=== PATIENT | female | born 2000 | race Caucasian/White ===

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

== ENCOUNTER 2022-01-17 12:33 | Emergency (ER) | payer OTHER ==
--- OUTSIDE RECORDS SUMMARY | 2022-01-17 12:40 | XMS REPORT | Continuity of Care Document ---
:2000 Author Organization [facility] t Address [address] [place] [address] Care Team Providers Name Role Phone Gabe SMITH, Juancarlos Olguin Primary Care Physician [phone] Janell Guillen Attending Clinician Unavailable WINDY YOUNGER Attending Clinician Unavailable Lolly Carty RN Attending Clinician Unavailable Darleen Elizabeth MD Attending Clinician Doctor Unassigned, [place] Attending Clinician Unavailable Haylee Pack MA Attending Clinician Unavailable Kendra Wright MD Attending Clinician MADELEINE KENNEY M.D. 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 00:00: [place] [address] Medical Branch SWOLLEN SWOLLEN Diagnosis Active 2017-052018-06-13 Memoria LEGS LEGS 0-02 08:58:00 l Active 00:00: Evelio 02/12/2018 00 [facility] LEG PAIN LEG PAIN Diagnosis Active 2018 Memoria Active 01-28 19:57:00 l 2018 00:00: Felix patrick [address] LEG PAIN LEG PAIN Diagnosis Active 2018-08-07 Memoria BILATERAL BILATERAL 01-28 10:12:00 l Active 00:00: Evelio 2018 00 [facility] Pain in Pain in Problem 2018-08-19 Me moria right foot right foot 13:25:31 l Felix patrick 9 [facility] Localized Localized Problem 2018-08-19 Memoria swelling, swelling, 13:25:31 l mass and mass and Felix patrick lump, lump, lower lower limb, limb, bilateral bilateral 08/19/2018 [facility] 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:25: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 Steen dimple 08/19/2018 [facility] Unsteadine Unsteadin Problem 2018-08-19 Memoria ss on feet ess on 13:25:31 l feet Steen 08/19/2018 [facility] Insomnia, Insomnia, Problem 2018-08-19 Memoria unspecifie unspecifie 13:25:31 l d d Evelio 08/19/2018 [facility] Pain in Pain in Problem 2018-08-19 Me moria left ankle left ankle 13:25:31 l Felix patrick 9 [facility] Pain in Pain in Problem 2018-08-19 Me moria right right 13:25:31 l ankle ankle Steen 08/19/2018 [facility] Weakness Weakness Problem 2018-08-19 Memoria 08/19/2018 13:25:31 l [facility] Pain in Pain in Problem 2018-09-01 Me moria left leg left leg 14:33:20 l 09/01/2018 Felix patrick [facility] Pain in Pain in Problem 2018-09-01 Me moria right leg right leg 14:33:20 l 09/01/2018 Felix patrick [facility] Other Other Problem 2018-09-01 Memor ia specified specified 14:33:20 l soft soft Steen tissue tissue disorders disorders 09/01/2018 [facility] Pain in Pain in Problem Active 2018-09-01 Me moria lower limb lower limb 14:33:20 l (finding) (finding) Herm david Active Problem 09/01/2018 [facility] PAIN IN PAIN IN Diagnosis Active 2018-08-07 Memoria RIGHT LEG RIGHT LEG 10:12:00 l Active [facility] Lymphedema Lymphedema Problem Active U T Physici ans History of History of Problem Resolve [facility] scoliosis scoliosis d Phys ici ans Abnormal Abnormal Problem Active [facility] thyroid thyroid Physici function function ans test test Karyn' Karyn' Problem Active U T s s Physici thyroiditi thyroiditi an s s s History of Past Illness Condition Condition Condition Status Onset Resolution Last Treating Co mments Source Name Details Category Date Date Treatment Clinician Date Other Other Problem 2017-052018-09-01 2018-09-01 M emoria chronic chronic 0-06 14:33:20 14:33:20 l pain pain 03:37: Evelio 02/16/2018 18 09/01/2018 [facility] Pain in Pain in Problem 2017-052018-09-01 2018-09-01 Memoria leg, leg, 0-02 14:33:20 14:33:20 l unspecifie unspecifie 05:00: Reji galvez d 00 02/12/2018 09/01/2018 [facility] Pain in Pain in Problem 2017-052018-08-19 2018-08-19 Memoria left foot left foot 06-12 13:25:31 13:25:31 l 04/12/2018 05:33: Felix patrick 08/19/2018 [facility] Allergies, Adverse Reactions, Alerts Allergy Allergy Status Severity Reaction(s) Onset Inactive Treating Comm ents Source Name Type Date Date Clinician Actical Drug Active [facility] Allergy 8- Health 00:00: 00 Eggs Or Allergy Active [facility] Egg-Deri to 01-06 Health alissa substanc 00:00: Products e 00 Food Food Active Memoria Eggs Eggs l Evelio Food Food Active Memoria Gluten Gluten l Evelio Other Other Active Memoria Food Food l Allergy< Allergy< Felix n sup>1</s sup>1</s up> up> Family History Family Member Diagnosis Comments Start Date Stop Date Source Grandmother Family history of diabetes [facility] mellitus Grandmother Family history of [facility] fibromyalgia Grandmother Family history of arthritis [facility] Mother Family history of [facility] gestational diabetes mellitus (GDM) Grandfather Family history of diabetes [facility] mellitus Grandfather Family history of [facility] hypertension Social History Social Habit Start Date Stop Date Quantity Comments Source Exposure to Not sure [facility] SARS-CoV-2 (event) History SDOH [facility] Comment [place] [facility] History SDOH [facility] o [facility] Alcohol Std [place] [facility] Drinks Branch History SDOH University o f Alcohol Binge [place] [facility] History SDOH 2020-06-09 2020-06-09 1 University o f Alcohol Frequency 00:00:00 00:00:00 [facility] edical Branch Alcohol intake 2018 2018 [facility] 00:00:00 00:00:00 non-drinker of alcohol (finding) Tobacco use and 2016-08-29 2016-08-29 Never used Universit y of exposure 00:00:00 00:00:00 [facility] [place] [facility] Sex Assigned At 2000 2002 [facility] 00:00:00 00:00:00 Smoking Status Start Date Stop Date Source Tobacco smoking consumption unknown [facility] Social History [facility] Medications Ordered Filled Start Stop Current Ordering Indication Dosage Frequency Signature Comments Components Source Medication Medication Date Date Medication? Clinician (SIG) Name Name acetaminoph Yes Take by [facility] en 01-06 mouth. Health (Tylenol) 08:48: 325 48 MG/10.15ML solution Flaxseed, Yes Take by UT Linseed, 01-06 mouth. Health (Flax Seed 08:48: Oil) 1000 48 MG capsule zinc Yes 50mg QD Take 50 mg UT gluconate 01-06 by mouth 1 Heal th 50 MG 08:48: (one) time tablet 48 each day. Probiotic Yes Take by [facility] Product 01-06 mouth. Health (PROBIOTIC 08:11: ADVANCED 17 PO) calcium 2022-0 Yes Take by UT carbonate 8-26 mouth. Health (Tums) 375 08:11: mg ([place] 17 150mg) tablet chewable split tablet arginine 0 Yes Take by UT (L-arginine 8- mouth. Health , R-Gene) 08:11: 10% 17 infusion gabapentin 2021-0 Yes [id number] 300mg Q.5D Take 1 UT (Neurontin) 8- capsule Healt h 300 MG 00:00: (300 mg capsule 00 total) by mouth in the morning and 1 capsule (300 mg total) in the evening. benzonatate 0 Yes 100mg Q.[id number] Take 100 UT (Tessalon) 8-11 [id number] mg by He alth 100 MG 00:00: 3D mouth 3 capsule 00 (three) times a day if needed. gabapentin 2021-0 2- No 300mg Q.[id number] Take 300 UT (Neurontin) 5-20 - [id number] mg by [facility] 300 MG 00:00: 00:00 3D mouth in capsule 00 :00 the morning and 300 mg at noon and 300 mg in the evening. ACETAMINOPH Yes Take by Uni vers EN (TYLENOL 1-20 mouth. ity of ORAL) 14:34: [address] calcium 2021-0 Yes Take by Univers carbonate 1-20 mouth. ity of (CALCIUM 14:34: [place] 300 ORAL) [address] [place] [address] ACETAMINOPH Yes Take by Uni vers EN (TYLENOL 1-20 mouth. ity of ORAL) 14:34: [address] calcium 2021-0 Yes Take by Univers carbonate 1-20 mouth. ity of (CALCIUM 14:34: [place] 300 ORAL) [address] [place] [address] ACETAMINOPH 2021-0 Yes Take by Uni vers EN (TYLENOL 1-20 mouth. ity of ORAL) 14:34: [address] calcium 2021-0 Yes Take by Univers carbonate 1-20 mouth. ity of (CALCIUM 14:34: [place] 300 ORAL) [address] [place] [address] ACETAMINOPH 2021-0 Yes Take by Uni vers EN (TYLENOL 1-20 mouth. ity of ORAL) 14:34: [address] calcium 2-0 Yes Take by Univers carbonate 1-20 mouth. ity of (CALCIUM 14:34: [place] 300 ORAL) 47 Medical Branch levonorgest 2022-0 Yes [id number] 1{tbl} Take 1 Univers rel-ethinyl 1-20 tablet by ity of estradiol 00:00: mouth [place] ([facility]) 00 every Medical 0.1-20 morning. Branch mg-mcg per tablet levonorgest 2022-0 Yes [id number] 1{tbl} Take 1 Univers rel-ethinyl 1-20 tablet by ity of estradiol 00:00: mouth [place] ([facility]) 00 every Medical 0.1-20 morning. Branch mg-mcg per tablet levonorgest 2022-0 Yes [id number] 1{tbl} Take 1 Univers rel-ethinyl 1-20 tablet by ity of estradiol 00:00: mouth [place] ([facility] every Medical 0.1-20 morning. Branch mg-mcg per tablet levonorgest 2022-0 Yes [id number] 1{tbl} Take 1 Univers rel-ethinyl 1-20 tablet by ity of estradiol 00:00: mouth [place] ([facility]) 00 every Medical 0.1-20 morning. Branch mg-mcg per tablet Methylsulfo 2022-0 Yes Take by [place] nylmethane 1-12 mouth. Health ([facility] 1000 11:12: MG capsule 02 Methylsulfo 2022-0 Yes Take by [place] nylmethane 1-12 mouth. Health ([facility] 1000 11:12: MG capsule 02 Methylsulfo 2022-0 Yes Take by [place] nylmethane 1-12 mouth. Health ([facility] 1000 11:12: MG capsule 02 Methylsulfo 2022-0 Yes Take by [place] nylmethane 1-12 mouth. Health ([facility] 1000 11:12: MG capsule 02 Methylsulfo 2022-0 Yes Take by [place] nylmethane 1-12 mouth. Health ([facility] 1000 11:12: MG capsule 02 amoxicillin 2020-05 Yes QD 1 (one) UT (Amoxil) 2-28 time each Health 500 MG 00:00: day. capsule 00 amoxicillin 2020-05 Yes QD 1 (one) UT (Amoxil) 2-28 time each Health 500 MG 00:00: day. capsule 00 amoxicillin 2020-05 Yes QD 1 (one) UT (Amoxil) 2-28 time each Health 500 MG 00:00: day. capsule 00 amoxicillin 2020-05 Yes QD 1 (one) UT (Amoxil) 2-28 time each Health 500 MG 00:00: day. capsule 00 amoxicillin 2020-05 Yes QD 1 (one) UT (Amoxil) 2-28 time each Health 500 MG 00:00: day. capsule 00 Vienva 2020-05 Yes 1{tbl} QD Take 1 UT 0.1-20 2-28 tablet by Health MG-MCG 00:00: mouth 1 tablet 00 (one) time each day. VIENVA 2020-05- No [id number] TAKE 1 Uni vers 0.1-20 2-27 01-20 TABLET BY ity of mg-mcg per 00:00: 00:00 MOUTH [place] tablet 00 :00 DAILY Medical Branch VIENVA 2020-05- No [id number] TAKE 1 Uni vers 0.1-20 2-27 01-20 TABLET BY ity of mg-mcg per 00:00: 00:00 MOUTH [place] tablet 00 :00 DAILY Medical Branch gabapentin 2020-05 Yes Univers 300 mg 2-20 ity of capsule 00:00: Medical Branch gabapentin 2020-05 Yes Univers 300 mg 2-20 ity of capsule 00:00: Medical Branch gabapentin 2020-05 Yes Univers 300 mg 2-20 ity of capsule 00:00: Medical Branch gabapentin 2020-05 Yes Univers 300 mg 2-20 ity of capsule 00:00: Medical Branch hydrOXYchlo 2020-05 Yes 200mg Take 200 U nivers roQUINE 200 2-15 mg by ity of mg tablet 00:00: mouth (two) Medical times Branch daily. ibuprofen 2020-05 Yes 800mg Take 800 Uni vers 800 mg 2-15 mg by ity of tablet 00:00: mouth (two) Medical times Branch daily with meals. hydrOXYchlo 2020-05 Yes 200mg Take 200 U nivers roQUINE 200 2-15 mg by ity of mg tablet 00:00: mouth (two) Medical times Branch daily. ibuprofen 2020-05 Yes 800mg Take 800 Uni vers 800 mg 2-15 mg by ity of tablet 00:00: mouth (two) Medical times Branch daily with meals. hydrOXYchlo 2020-05 Yes 200mg Take 200 U nivers roQUINE 200 2-15 mg by ity of mg tablet 00:00: mouth (two) Medical times Branch daily. ibuprofen 2020-05 Yes 800mg Take 800 Uni vers 800 mg 2-15 mg by ity of tablet 00:00: mouth (two) Medical times Branch daily with meals. hydrOXYchlo 2020-05 Yes 200mg Take 200 U nivers roQUINE 200 2-15 mg by ity of mg tablet 00:00: mouth (two) Medical times Branch daily. ibuprofen 2020-05 Yes 800mg Take 800 Uni vers 800 mg 2-15 mg by ity of tablet 00:00: mouth (two) Medical times Branch daily with meals. ibuprofen 2020-05 Yes 800mg Take 800 UT 800 MG 2-15 mg by Health tablet 00:00: mouth (two) times a day with meals. hydroxychlo 2020-05 Yes 200mg Take 200 U T roquine 2-15 mg by Health (Plaquenil) 00:00: mouth if 200 MG 00 needed. tablet ibuprofen 2020-05 Yes 800mg Take 800 UT 800 MG 2-15 mg by Health tablet 00:00: mouth (two) times a day with meals. hydroxychlo 2020- Yes 200mg Take 200 U T roquine 2-15 mg by Health (Plaquenil) 00:00: mouth if 200 MG 00 needed. tablet ibuprofen 2020-05 Yes 800mg Take 800 UT 800 MG 2-15 mg by Health tablet 00:00: mouth 00 (two) times a day with meals. hydroxychlo 2020- Yes 200mg Take 200 U T roquine 2-15 mg by Health (Plaquenil) 00:00: mouth if 200 MG 00 needed. tablet ibuprofen 2020- Yes 800mg Take 800 UT 800 MG 2-15 mg by Health tablet 00:00: mouth 2 00 (two) times a day with meals. hydroxychlo 2020- Yes 200mg Take 200 U T roquine 2-15 mg by Health (Plaquenil) 00:00: mouth if 200 MG 00 needed. tablet ibuprofen 2020- Yes 800mg Take 800 UT 800 MG 2-15 mg by Health tablet 00:00: mouth 2 00 (two) times a day with meals. hydroxychlo 2020-05 Yes 200mg Take 200 U T roquine 2-15 mg by Health (Plaquenil) 00:00: mouth if 200 MG 00 needed. tablet predniSONE 2020-05- No Univer s 5 mg tablet 2-15 06-02 ity of 00:00: 00:00 [place] 00 :00 Medical Branch predniSONE 2020-05- No Univer s 5 mg tablet 2-06-02 ity of 00:00: 00:00 [place] 00 :00 Medical Branch lidocaine 2020-05 Yes APPLY 1 UT (Lidoderm) 0-26 PATCH Health 5 % patch 00:00: TOPICALLY 00 TO THE SKIN DAILY NEEDED Lactobacill Yes Take by Uni vers us 06-09 mouth. ity of acidophilus 14:10: [place] (PROBIOTIC 12 Medical ORAL) Branch ARGININE Yes Take by Univer s HCL, 06-09 mouth. ity of L-ARGININE, 14:10: [address] Branch Lactobacill Yes Take by Uni vers us 06-09 mouth. ity of acidophilus 14:10: [place] (PROBIOTIC 12 Medical ORAL) Branch ARGININE Yes Take by Univer s HCL, 06-09 mouth. ity of L-ARGININE, 14:10: [place] [address] Medical Branch Lactobacill Yes Take by Uni vers us 06-09 mouth. ity of acidophilus 14:10: [place] (PROBIOTIC 12 Medical ORAL) Branch ARGININE Yes Take by Univer s HCL, 06-09 mouth. ity of L-ARGININE, 14:10: [place] [address] Medical Branch Lactobacill Yes Take by Uni vers us 06-09 mouth. ity of acidophilus 14:10: [place] (PROBIOTIC 12 Medical ORAL) Branch ARGININE Yes Take by Univer s HCL, 06-09 mouth. ity of L-ARGININE, 14:10: [place] [address] Medical Branch lidocaine 5 Yes 1{patch Apply 1 Univers % (700 1-27 } Patch to ity of mg/patch) 14:01: area(s) [place] patch 06 once now. Medical Branch lidocaine 5 Yes 1{patch Apply 1 Univers % (700 1-27 } Patch to ity of mg/patch) 14:01: area(s) [place] patch 06 once now. Medical Branch lidocaine 5 Yes 1{patch Apply 1 Univers % (700 1-27 } Patch to ity of mg/patch) 14:01: area(s) [place] patch 06 once now. Medical Branch lidocaine 5 Yes 1{patch Apply 1 Univers % (700 1-27 } Patch to ity of mg/patch) 14:01: area(s) [place] patch 06 once now. Medical Branch Lidocaine 5 Lidocaine 5 Yes MADELEINE UT % External % External 3-01 ANNE MARIE Osorio Phys[facility] Patch Patch 00:00: ans 00 Ketorolac 2017-05 No 10 mg, 1 Michael clay Tromethamin 0-02 tab, l e 10 MG 14:00: Route: PO, Herm david Oral Tablet 00 QID, Dosing Weight 74.1, kg, Start date: 02/12/18 9:00:00 CDT, Duration: 4 day, Stop date: 02/15/18 21:00:00 CDT Ketorolac 2017-05 No 10 mg, 1 Michael clay Tromethamin 0-02 tab, l e 10 MG 14:00: Route: PO, Herm david Oral Tablet 00 QID, Dosing Weight 74.1, kg, Start date: 02/12/18 9:00:00 CDT, Duration: 4 day, Stop date: 02/15/18 21:00:00 CDT NS 2017-05 No 741 mL, Memoria (Pediatric) 0 Route: IV, l Bolus 11:36: Dosing Steen Weight 74.1, kg, ONCE, Bolus dose, STAT, Start date: 02/12/18 6:36:00 CDT, Stop date: 02/12/18 6:36:00 CDT NS 2017-05 No 741 mL, Memoria (Pediatric) 0- Route: IV, l Bolus 11:36: Dosing Steen 00 Weight 74.1, kg, ONCE, Bolus dose, STAT, Start date: 02/12/18 6:36:00 CDT, Stop date: 02/12/18 6:36:00 CDT ketOROLAC 2017-05 No 30 mg, Memori a 30 mg/mL 0 Route: IV, l injectable 10:47: ONCE, Felix n solution 00 Dosing Weight 74.1, kg, Start date: 02/12/18 5:47:00 CDT, Stop date: 02/12/18 5:47:00 CDT ketOROLAC 2018-1 No 30 mg, Memori a 30 mg/mL Route: IV, l injectable 10:47: ONCE, Felix n solution 00 Dosing Weight 74.1, kg, Start date: 02/12/18 5:47:00 CDT, Stop date: 02/12/18 5:47:00 CDT Ketorolac 2018-0 No 50 kg; Memor ia Tromethamin 9-20 Pediatric l e 10 MG 02:33: Dosing, X Mary Anne nn Oral Tablet 00 2 day, # 8 tab, 0 Refill(s) Ketorolac 2018-0 No 50 kg; Memor ia Tromethamin 9-20 Pediatric l e 10 MG 02:33: Dosing, X Mary Anne nn Oral Tablet 00 2 day, # 8 tab, 0 Refill(s) Ketorolac 2018-0 No 50 kg; Memor ia Tromethamin 9-20 Pediatric l e 10 MG 01:46: Dosing, X Mary Anne nn Oral Tablet 00 5 day, # 20 tab, 0 Refill(s) Ketorolac 2018-0 No 50 kg; Memor ia Tromethamin 9-20 Pediatric l e 10 MG 01:46: Dosing, X Mary Anne nn Oral Tablet 00 5 day, # 20 tab, 0 Refill(s) Lidocaine 2018-0 Yes 1 patch, Michael clay 0.05 MG/MG 9-19 TOP, l Transdermal 23:32: Daily, Herm david Patch 00 remove patches after 12 hours, # 7 patch, 0 Refill(s) Lidocaine 2018-0 Yes 1 patch, Michael clay 0.05 MG/MG 9-19 TOP, l Transdermal 23:32: Daily, Herm david Patch 00 remove patches after 12 hours, # 7 patch, 0 Refill(s) Tylenol 2017-0 No Notes: Do Memor ia 9-19 not exceed l 16:15: 4 gm/day. Evelio (Same as: Tylenol) Tylenol 2017-0 No Notes: Do Memor ia 9-19 not exceed l 16:15: 4 gm/day. Steen (Same as: Tylenol) Ketorolac 2018-0 No 4 days. Michael clay Tromethamin 01-30 Give with l e 10 MG 11:45: food. Evelio Oral Tablet 00 (Same as:Toradol ) Ketorolac 2018-0 No 4 days. Michael clay Tromethamin - Give with l e 10 MG 11:45: food. Evelio Oral Tablet 00 (Same as:Toradol ) Ketorolac 2018-0 No 4 days Memor ia 01-29 l 14:36: MEDICATION Evelio 00 WASTE Product Size: 30 mg Product Wasted: ___ mg Ketorolac 2018-0 No 4 days Memor ia 18 l 14:36: MEDICATION Evelio 00 WASTE Product Size: 30 mg Product Wasted: ___ mg Ketorolac 2018-0 No 4 days Memor ia 01-29 l 05:00: MEDICATION Steen 00 WASTE Product Size: 30 mg Product Wasted: ___ mg Ketorolac 2018-0 No 4 days Memor ia 01-29 l 05:00: MEDICATION Evelio 00 WASTE Product Size: 30 mg Product Wasted: ___ mg Prednisone 2018-0 No 20 mg, PO, M emoria -18 TID, l 04:50: Quantity Evelio 00 sufficient , 0 Refill(s) Prednisone 2017-0 No 20 mg, PO, M emoria -18 TID, l 04:50: Quantity Evelio 00 sufficient , 0 Refill(s) sucrose 0 No 1 mL, Memoria 01-29 Route: PO, l 04:46: Drug Form: Evelio 00 LIQ, Dosing Weight 73.9, kg, PRN, PRN Procedure, Start date: 01/28/18 23:46:00 CDT, Duration: 3 doses or times, Stop date: Limited # of times pentafluoro 0 No Notes: Michael clay propane-tet 01-29 (Same as: l rafluoroeth 04:46: Pain Ease H ermann ane topical 00 Medium Stream) WASTE: Aerosol - Return to Pharmacy Lidocaine 2017-0 No 1 appl, Memor ia 40 MG/ML 01-29 Route: l Topical 04:46: TOP, PRN, Mary Anne nn Cream 00 Drug form: CRM, PRN Procedure, Start date: 01/28/18 23:46:00 CDT, Duration: 30 day, Stop date: 02/27/18 23:45:00 CDT sucrose 2017-0 No 1 mL, Memoria 01-29 Route: PO, l 04:46: Drug Form: Steen 00 LIQ, Dosing Weight 73.9, kg, PRN, PRN Procedure, Start date: 01/28/18 23:46:00 CDT, Duration: 3 doses or times, Stop date: Limited # of times pentafluoro 2017-0 No Notes: Michael clay propane-tet 01-29 (Same as: l rafluoroeth 04:46: Pain Ease H ermann ane topical 00 Medium Stream) WASTE: Aerosol - Return to Pharmacy Lidocaine 2017-0 No 1 appl, Memor ia 40 MG/ML 01-29 Route: l Topical 04:46: TOP, PRN, Mary Anne nn Cream 00 Drug form: CRM, PRN Procedure, Start date: 01/28/18 23:46:00 CDT, Duration: 30 day, Stop date: 02/27/18 23:45:00 CDT Ketorolac 2017-0 No 15 mg, Memori a 01-28 Route: l 23:56: IVP, Drug form: INJ, ONCE, kg, Priority: STAT, Start date: 01/28/18 18:56:00 CDT, Stop date: 01/28/18 18:56:00 CDT Ketorolac 2017-0 No 15 mg, Memori a 01-28 Route: l 23:56: IVP, Drug form: INJ, ONCE, kg, Priority: STAT, Start date: 01/28/18 18:56:00 CDT, Stop date: 01/28/18 18:56:00 CDT Immunizations Ordered Immunization Filled Immunization Date Status Commen ts Source Name Name Tdap 2014-12-31 [facility] 00:00:00 Meningococcal, 2014-12-31 [facility] Unknown Serogroups 00:00:00 Meningococcal MCV4P 2014-12-31 [facility] 00:[facility]:00 Boostrix 5-2.5-18.5 2014-12-31 [facility] Intramuscular 00:00:00 Suspension Meningococcal, MCV4, 2014-12-31 [facility]pleted [facility] unspecified conjugate 00:00:00 formulation(groups A, C, Y and W-135) Varicella 2007-03-01 [facility] 00:00:00 Varivax 1350 2007-03-01 Completed [facility] PFU/0.5ML 00:00:00 Subcutaneous Injectable MMR 2006-02-09 Completed [facility] 00:00:00 IPV 2006-02-09 [facility]pleted [facility] 00:00:00 Polio, Unspecified 2006-02-09 [facility] 00:[facility]:00 DTaP 2006-02-09 [facility] 00:00:00 DTaP, unspecified 2006-02-09 [facility]pleted [facility] formulation 00:00:00 Ipol Injection 2006-02-09 Completed [facility] Injectable 00:00:00 M-M-R II Subcutaneous 2006-02-09 [facility]pleted [facility] Injectable 00:00:00 Hep A, Unspecified 2005-09-19 [facility] 00:[facility]:00 Hep A, ped/adol, 2 2005-09-19 [facility]pleted [facility] dose 00:00:00 hepatitis A vaccine, 2005-09-19 [facility]pleted [facility] pediatric/adolescent 00:00:00 dosage, 2 dose schedule Pneumococcal 2005-01-17 [facility] Conjugate PCV 7 00:00:00 Hep A, Unspecified 2005-01-17 [facility]pleted [facility] 00:00:00 Pneumococcal, 2005-01-17 [facility] Unspecified 00:00:00 Hep A, ped/adol, 2 2005-01-17 [facility]pleted [facility] dose 00:00:00 Pneumo (Prevnar 7) 2005-01-17 [facility]pleted [facility] 00:00:00 hepatitis A vaccine, 2005-01-17 Completed [facility] pediatric/adolescent 00:00:00 dosage, 2 dose schedule MMR 2003-06-02 Completed [facility] 00:00:00 MMR 2003-06-02 Completed [facility] 00:00:00 Pneumococcal 2003-06-02 Completed [facility] Conjugate PCV 7 00:00:00 Varicella 2003-06-02 Completed [facility] 00:00:00 Varicella 2003-06-02 [facility] 00:00:00 HiB, unspecified 2003-06-02 Completed [facility] 00:00:00 Pneumococcal, 2003-06-02 [facility]pleted [facility] Unspecified 00:00:00 DTaP, Unspecified 2003-06-02 [facility] 00:[facility]:00 DTaP 2003-06-02 [facility] 00:00:00 Hib (PRP-T) 2003-06-02 Completed [facility] 00:00:00 DTaP, unspecified 2003-06-02 [facility]pleted [facility] formulation 00:00:00 Hib, Haemophilus 2003-06-02 [facility]pleted [facility] influenzae type b 00:00:00 vaccine, PRP-T conjugate Pneumo (Prevnar 7) 2003-06-02 [facility]pleted [facility] 00:00:00 M-M-R II Subcutaneous 2003-06-02 Completed [facility] Injectable 00:00:00 Varivax 1350 2003-06-02 Completed [facility] PFU/0.5ML 00:00:00 Subcutaneous Injectable Pneumococcal 2002 Com[facility] Conjugate PCV 7 00:00:00 Pneumococcal, 2002 Completed [facility] Unspecified 00:00:00 Pneumo (Prevnar 7) 2002 [facility]pleted [facility] 00:00:00 IPV 2002 [facility] 00:00:00 Hep B, Unspecified 2002 [facility] 00:[facility]:00 HiB, unspecified 2002 [facility] 00:00:00 Polio, Unspecified 2002 [facility] 00:00:00 DTaP 2002 [facility] 00:00:00 Hep B, Adolescent or 2002 [facility] 00:00:00 Hib (PRP-T) 2002 [facility] 00:00:00 Hepatitis B, 2002 [facility]pleted [facility] pediatric/adolescent 00:00:00 dosage DTaP, unspecified 2002 [facility] formulation 00:00:00 Ipol Injection 2002 Completed [facility] Injectable 00:00:00 Hib, Haemophilus 2002 Completed [facility] influenzae type b 00:00:00 vaccine, PRP-T conjugate Pneumococcal 2002 Com[facility] Conjugate PCV 7 00:00:00 IPV 2002 Com[facility] 00:00:00 HiB, unspecified 2002 [facility] Unspecified 00:[facility]:00 Pol[facility], Unspecified [facility]P [facility] 00:[facility]:00 Hib (PRP-T) 2002 [facility] 00:[facility]:00 DTaP, unspecified 2002 [facility] formulation 00:00:00 Ipol Injection 2002 [facility] Injectable 00:00:00 Hib, Haemophilus 2002 [facility] influenzae type b 00:00:00 vaccine, PRP-T conjugate Pneumo (Prevnar 7) 2002 [facility]00 IPV [facility] 00:[facility]:00 Hep B, Unspecified [facility] HiB, unspecified [facility] Polio, Unspecified [facility] D[facility]P [facility] 00:[facility]:00 Hep B, Adolescent or [facility] Hib (PRP-T) 2002 [facility] 00:[facility]:00 Hepatitis B, 2002 [facility]:00 dosage DTaP, unspecified 2002 [facility] formulation 00:00:00 Ipol Injection 2002 [facility] Injectable 00:00:00 Hib, Haemophilus 2002 [facility] influenzae type b 00:00:00 vaccine, PRP-T conjugate Hep B, Unspecified [facility] Hep B, Adolescent or [facility] Hepatitis B, 2002 [facility] 00:[facility]:00 dosage Vital Signs Vital Name Observation Time Observation Value Comments Source Systolic blood 2022-01-06 111 mm[Hg] [facility] pressure 13:42:00 Diastolic blood 2022-01-06 73 mm[Hg] [facility] pressure 13:42:00 Heart rate 2022-01-06 94 /min [facility] 13:42:00 Body temperature 2022-01-06 36.78 Ella [facility] 13:42:00 Body height 2022-01-06 160 cm [facility] 13:42:00 Body weight 2022-01-06 97.693 kg [facility] 13:42:00 BMI 2022-01-06 38.15 kg/m2 [facility] 13:42:00 Systolic blood 2021-06-02 116 mm[Hg] [facility] pressure 20:31:00 [facility] Diastolic blood 2021-06-02 74 mm[Hg] [facility] pressure 20:31:00 [facility] Heart rate 2021-06-02 85 /min [facility] 20:31:00 [facility] Body temperature 2021-06-02 37.11 Ella [facility] 20:31:00 [facility] Respiratory rate 2021-06-02 18 /min [facility] 20:31:00 [facility] Body height 2021-06-02 160 cm [facility] 20:31:00 [facility] Body weight 2021-06-02 92.443 kg [facility] 20:31:00 [facility] BMI 2021-06-02 36.10 kg/m2 [facility] 20:31:00 [facility] Body mass index 2021-06-02 97.65 % [place] [facility] (BMI) [Percentile] 20:31:00 [facility] Per age and sex Branch Systolic blood 2021-05-25 118 mm[Hg] [facility] pressure 17:07:00 Diastolic blood 2021-05-25 75 mm[Hg] [facility] pressure 17:07:00 Heart rate 2021-05-25 89 /min [facility] 17:07:00 Body temperature 2021-05-25 36.28 Ella [facility] 17:07:00 Body weight 2021-05-25 92.171 kg [facility] 17:07:00 BMI 2021-05-25 36.09 kg/m2 [facility] 17:07:00 Body mass index 2021-05-25 97.66 % [facility] (BMI) [Percentile] 17:07:00 Per age and sex Systolic blood 2020-06-21 137 mm[Hg] Location: [facility] ns pressure 15:08:00 Position: Sitting Diastolic blood 2020-06-21 74 mm[Hg] [facility]: [facility]; [facility] pressure 15:08:00 Position: Sitting Body height 2020-06-21 159.8 cm [facility] 15:08:00 Weight 2020-06-21 85.9 kg [facility] 15:08:00 Body mass index 2020-06-21 33.64 kg/m2 [facility] (BMI) [Ratio] 15:08:00 Body temperature 2020-06-21 97.4 [degF] Method: [facility] 15:08:00 Temporal Heart Rate 2020-06-21 77 /min [facility] 15:08:00 BP Systolic 2019-05-21 102 mm[Hg] [facility] 08:52:00 BP Diastolic 2019-05-21 66 mm[Hg] [facility] 08:52:00 Height 2019-05-21 161.9 cm [facility] 08:52:00 Weight 2019-05-21 76.6 kg [facility] 08:52:00 Body Mass Index 2019-05-21 29.22 kg/m2 [facility] Calculated 08:52:00 Heart Rate 2019-05-21 79 /min [facility] 08:52:00 BP Systolic 2018-07-12 117 mm[Hg] [facility] 11:30:00 BP Diastolic 2018-07-12 76 mm[Hg] [facility] 11:30:00 Height 2018-07-12 161.9 cm [facility] 11:30:00 Weight 2018-07-12 78.05 kg [facility] 11:30:00 Body Mass Index 2018-07-12 29.78 kg/m2 [facility] Calculated 11:30:00 Heart Rate 2018-07-12 104 /min [facility] 11:30:00 Respitory Rate 2018-02-12 [facility] 13:46:00 Systolic (mm Hg) 2018-02-12 [facility] rmann 13:46:00 Diastolic (mm Hg) 2018-02-12 [facility] ermann 13:46:00 Heart Rate 2018-02-12 [facility] 13:46:00 Respitory Rate 2018-02-12 [facility] 11:16:00 Systolic (mm Hg) 2018-02-12 [facility] He rmann 11:16:00 Diastolic (mm Hg) 2018-02-12 [facility] H ermann 11:16:00 Heart Rate 2018-02-12 [facility] 11:16:00 Systolic (mm Hg) 2018-02-12 [facility] 11:15:00 Diastolic (mm Hg) 2018-02-12 [facility] 11:15:00 Respitory Rate 2018-02-12 [facility] 11:15:00 Heart Rate 2018-02-12 [facility] 11:15:00 Temperature Oral 2018-02-12 97.8 F Margarito Mendoza rmann (F) 11:13:00 Temperature Oral 2018-02-12 97.6 F Margarito Mendoza rmann (F) 08:49:00 Weight 2018-02-12 [facility] [...] ermann 13:08:00 Temperature Oral 2018-01-30 98.1 F Margarito Mendoza rmann (F) 08:27:00 Temperature Oral 2018-01-30 98.1 F [facility] Reji rmann (F) 04:55:00 Height 2018-01-29 161 cm [facility] 03:17:00 BMI Calculated 2018-01-29 [facility] 03:17:00 Weight 2018-01-29 [facility] 03:17:00 Temperature Oral 2018-01-29 98.0 F Margarito Mendoza rmann (F) 03:03:00 Weight 2018-01-29 [facility] 00:47:00 Procedures Procedure Date / Time Performing Clinician Source Performed POCT TEST 2021-06-02 20:43:00 [facility] 2021-06-02 06:01:00 Doctor Unassigned, No [facility] [place] CONTRACEPTION Name Medical Branch [QLH] TSH, 3RD 2019-05-21 00:00:00 [facility] GENER[facility] [[facility]] T4, TOTAL 2019-05-21 00:00:00 [facility] (THYROXINE) [QLH] T4, FREE 2019-05-21 00:00:00 [facility] [[facility]] T3 UPTAKE 2019-05-21 00:00:00 [facility] [[facility]] TSH, 3RD 2018-07-12 00:00:00 [facility] GENERATION [[facility]] T4, TOTAL 2018-07-12 00:00:00 [facility] (THYROXINE) [QLH] T4, FREE 2018-07-12 00:00:00 [facility] [[facility]] T3, TOTAL 2018-07-12 00:00:00 [facility] [[facility]] T3 UPTAKE 2018-07-12 00:00:00 [facility] [[facility]] THYROGLOBULIN 2018-07-12 00:00:00 [facility] ANTIBODIES [[facility]] THYROID PEROXIDASE 2018-07-12 00:00:00 [facility] ANTIBODIES Plan of Care Planned Activity Planned Date Details Comments Source Future Scheduled 2022-01-17 HEPATITIS B [facility] Test 12:36:54 VACCINES (1 of 3 - Hospital 3-dose series) [code = HEPATITIS B VACCINES (1 of 3 - 3-dose series)] Future Scheduled 2022-01-17 COVID-[address] Test 12:36:54 (#1) [code = Hospital COVID-19 VACCINE (#1)] Future Scheduled 2022-01-17 Screening for Buddhist Test 12:36:54 Chlamydia Hospital trachomatis (procedure) [code = 870278527] Future Scheduled 2022-01-17 INFLUENZA VACCINE Method ist Test 12:36:54 [code = INFLUENZA Hospital VACCINE] Future Scheduled [QLH] TSH, 3RD [facility] next [facility] GENERATION [code = appointment [QLH] TSH, 3RD GENERATION] Future Scheduled [QLH] T4, TOTAL Before next [facility] Test (THYROXINE) [code appointment = [QLH] T4, TOTAL (THYROXINE)] Future Scheduled [QLH] T4, FREE Before next [facility] [code = [QLH] T4, appointment FREE] Future Scheduled [QLH] T3 UPTAKE Before next [facility] Test [code = [QLH] T3 appointment UPTAKE] Future Scheduled [QLH] TSH, 3RD Before next [facility] Test GENERATION [code = appointment [QLH] TSH, 3RD GENERATION] Future Scheduled [QLH] T4, TOTAL Before next [facility] Test (THYROXINE) [code appointment = [QLH] T4, TOTAL (THYROXINE)] Future Scheduled [QLH] T4, FREE Before next [facility] Test [code = [QLH] T4, appointment FREE] Future Scheduled [QLH] T3 UPTAKE Before next [facility] Test [code = [QLH] T3 appointment UPTAKE] Future Scheduled [QLH] TSH, 3RD Before next [facility] Test GENERATION [code = appointment [QLH] TSH, 3RD GENERATION] Future Scheduled [QLH] T4, TOTAL Before next [facility] Test (THYROXINE) [code appointment = [QLH] T4, TOTAL (THYROXINE)] Future Scheduled [QLH] T4, FREE Before next [facility] Test [code = [QLH] T4, appointment FREE] Future Scheduled [QLH] T3 UPTAKE Before next [facility] Test [code = [QLH] T3 appointment UPTAKE] Encounters Start End Encounter Admission Attending Care Care Encounter Source Date/Time Date/Time Type Type Clinicians Facility Department ID 2021-12-23 Outpatient [facility] [id number] [place] 07:24:[id number] [place] [address] 2021-12-05 Outpatient [facility] [id number] Common 15:01:01 [facility] 2021-09-22 Outpatient YOUNGER, [facility] [id number] [place] 14:30:14 [facility] [id number] [facility] 2021-09-12 Outpatient Guillen, [facility] [id number] Common 13:59:01 [facility] 2022-05-01 2022-05-01 Outpatient YOUNGER, [facility] [id number] [place] 13:00:00 13:00:00 [facility] 2022-01-06 2022-01-06 Office Sole, [facility] [id number] [facility] 09:00:00 09:40:56 Visit Windy KENNEDY [id number] [facility] [id number] [facility] [id number] SPECIALTY 7 2021-12-22 2021-12-22 ambulatory STLMLC STLMLC [id number] Common 00:00:00 00:00:00 [facility] 2021-12-22 2021-12-22 ambulatory STLMLC STLMLC [id number] Common 00:00:00 00:00:00 [facility] 2021-12-05 2021-12-05 ambulatory STLMLC STLMLC [id number] Common 00:00:00 00:00:00 [facility] 2021-10-04 2021-10-04 ambulatory STLMLC STLMLC [id number] Common 00:00:00 00:00:00 [facility] 2021-09-21 2021-09-21 Telephone RASHAAD Younger 6410 [id number] [place] 00:00:00 00:00:00 Windy CRESPO [id number] Health 9.2.7.2.686 [id number] 2021-09-13 2021-09-13 ambulatory STLMLC STLMLC [id number] Common 00:00:00 00:00:00 [facility] 2021-06-27 2021-06-27 Telephone Lolly Carty 6410 1.2.840. [id number] [place] 00:00:00 00:00:00 Lolly Carty [id number] Health 9.2.7.2.686 [id number] 2021-06-04 2021-06-04 Refill Darleen Elizabeth [place] [id number] [facility] 00:00:00 00:00:00 GABRIELA [id number] [place] [id number] [facility] [address] 2021-06-02 2021-06-02 Office Darleen Elizabeth BON[place] [id number] [facility] 14:00:00 14:48:27 Visit GABRIELA [id number] [place] [id number] [facility] [address] 2021-06-02 2021-06-02 Orders Doctor SANTY [id number] Univers 00:00:00 00:00:00 Only Unassigned, KRYSTAL [id number] ity of [place] [facility] 4.2.7.2.686 [place] as [id number] [facility] 00[address] Branch 2021-05-30 2021-05-30 Telephone Haylee Pack UTP 6410 1.2.840.1 [id number] [place] 00:00:00 00:00:00 Sirena, Jackeagle [address]ERIE [address] 350.1.13.58 Health 9.2.7.2.686 [id number] 2021-05-25 2021-05-25 Office Sahu UTP 6410 1.2.840.114 [id number] [place] 11:00:00 12:10:[address] [id number] Health Kendra 9.2.7.2.686 [id number] 2020-08-31 2020-08-31 [facility] Darleen Elizabeth [facility] 1.2.840.114 [id number] 12:56:27 23:59:00 Encounter Concho [id number] [place] 4.2.7.2.686 [place] [id number] 2020-08-31 2020-08-31 [facility] 1.2.840.114 [id number] 12:54:42 12:55:00 Encounter [place] [id number] [place] 4.2.7.2.686 [place] [id number] 2020-06-21 2020-06-21 AppointRASHAAD Briceno [id number] [place] 15:20:00 15:20:00 t; MADELEINE KENNEY, Endocrinolo Physici Pop [place]. gy/Diabetes ans M.DBrian 2020-06-09 2020-06-09 Orders Doctor SANTY [id number] 00:00:00 00:00:00 Only Unassigned, KRYSTAL 350.1.13.10 [place] [facility] 4.2.7.2.686 [id number] 2019-05-21 2019-05-21 Appointmen RASHAAD KENNEY [id number] [place] 09:30:00 09:30:00 t; MADELEINE KENNEY Endocrinolo Physici NUNILO, M.D. gy/Diabetes ans M.DBrian 2018-07-12 2018-07-12 Appointmen RASHAAD KENNEY Pedi [id number] [place] 11:00:00 11:00:00 t; MADELEINE KENNEY Endocrinolo Physici NUNILO, M.D. gy/Diabetes ans M.Sabrina 2018-02-12 2018-02-12 Emergency nullFlavo [facility] [id number] Memoria 08:26:00 13:50:00 finesse Fraser 01 [facility] 2018-02-12 2018-02-12 [facility] 55096 51281 Memoria 08:26:00 13:50:00 finesse Fraser [facility] 2018-02-12 2018-02-[address] [facility] [id number] 03:26:00 08:50:00 Venkat Kathrine Elijah 2018 2018-01-31 Observatio nullFlavo [facility] [id number] Memoria 20:05:00 03:20:00 darnell Fraser [facility] 2018 2018-01-31 Observatio nullFlavo [facility] 4656 [id number] Memoria 20:05:00 03:20:00 darnell Fraser [facility] 2018 2018-01-[address] [facility] [id number] 15:05:00 22:20:00 Cinthya 00 Results Test Description Test Time Test Comments Results Result Comments Source POCT TEST 2021-06-02 20:43:00 Test Item Value Reference Range Interpretation Comme nts POCT PREG (test code = 1605) Negative On board controls acceptable with C Line (test code = 3574) Yes POCT PREG LOT # (test code = 3575) POCT PREG TEST DATE (test code = 3576) Lab Interpretation (test code = 59318-6) Normal [facility] [id number] 20:43:00 Test Item Value Reference Range Interpretation Comments POCT PREG (test code = 1605) Negative On board controls acceptable with C Yes Line (test code = 3574) POCT PREG LOT # (test code = 3575) POCT PREG TEST DATE (test code = 3576) Lab Interpretation (test code = Normal 55652-0) [facility][QL] T4, TOTAL (THYROXINE)2020-06-21 16:14:00 Test Item Value Reference Range Interpretation Comments T4, TOTAL 10.1 {mcg/dl} 5.5-11.1 <1 month: Not (THYROXINE) (test Establishe d - code = T4, TOTAL months: 6.0 -13.2 mcg/dL (THYROXINE)) 2-12 years: 5.5 -12.1 mcg/dL 13-20 ye ars: 5.5-11.1 mcg/dL Conversion fact or: 1 mcg/dL = 12.9 n mol/L [facility][QL] T3 [id number] 16:14:00 Test Item Value Reference Range Interpretation Comments T3 UPTAKE (test code = T3 UPTAKE) 27 % 22-35 N [facility][QL] T4, [id number] 16:14:00 Test Item Value Reference Range Interpretation Comments T4, FREE (test code = T4, FREE) 1.2 ng/dl 0.8-1.4 N [facility][QL] TSH, 3RD [id number] 16:14:00 Test Item Value Reference Range Interpretation Comments TSH; Normal (test 1.78 {MIU/L} N Reference Range 1-19 code = 57186-7) Years 0.50-4 .30 Range s First trimester 0.26- 2.66 Second trimeste r 0.55-2.73 Third trimester 0.43- 2.91 [facility]icians[facility]ucose (Point of Care In Office)2019-05-21 08:53:00 Test Item Value Reference Range Interpretation Comments Glucose POC Lifescan (test code = 99 A Glucose POC Lifescan) [facility][O] Hemoglobin A1c (in office)2019-05-21 08:52:00 Test Item Value Reference Range Interpretation Comments HEMOGLOBIN A1c; Abnormal (test code = 4.9 A 4548-4) [facility][QLH] THYROID PEROXIDASE [id number] 13:17:01 Test Item Value Reference Range Interpretation Comments Thyroid Peroxidase (TPO) Antibody; 63 {IU/ml} <=60 Above High Threshold (test code = 77765-3) [facility][QLH] THYROGLOBULIN [id number] 13:17:01 Test Item Value Reference Range Interpretation Comments Thyroglobulin Antibody (test code 22 {IU/ml} <=60 = 28872-1) [facility][QL] T3, [id number] 13:17:01 Test Item Value Reference Range Interpretation Comments T3 Total (test code = 3053-6) 1.13 ng/ml 0.60-1.81 [facility][QLH] T3 [id number] 13:16:01 Test Item Value Reference Range Interpretation Comments T3 Uptake (test code = 3050-2) 36 % 31-39 [facility][QL[facility]] T4, [id number] 13:16:01 Test Item Value Reference Range Interpretation Comments T4 Free (test code = 3024-7) 1.20 ng/dl 0.76-1.46 [facility][QL[facility]] T4, TOTAL (THYROXINE)2018-07-12 13:16:01 Test Item Value Reference Range Interpretation Comments Thyroxine (test code = 3026-2) 11.4 ug/dL 4.2-12.5 [facility][QLH] TSH, 3RD [id number] 13:16:01 Test Item Value Reference Range Interpretation Comments TSH (test code = 30444-9) 1.320 {uIU/ml} 0.360-3.740 [facility][H] Free Thyroxine [id number] 13:16:01 Test Item Value Reference Range Interpretation Comments Free Thyroxine Index (test code = 4.1 89522-1) [place] CkxnvxzvioGGBGJASPVT2505-41-03 10:42[facility] 2018-02-12 10:42:0013.3[facility] NphekrrRCGBAZPYVD1768-80-22 10:42:004.63[facility] MpttmuyNDGOSSCIPL0404-31-66 10:42:30739Pqwrrdty BrpjykcLSGAMXXUCK6057-53-47 10:42:0033.8[facility] EpfudayMEVMARUUWB4798-93-05 10:42:0013.7[facility] [id number] 10:42:00 Test Item Value Reference Range Interpretation Comments MCH (test code = MCH) 28.7 pg 27.0-31.0 [facility] BuxysihNMWIVEPPMV6449-54-22 10:42:0039.3[facility]ann[facility]MATOLOGY 2018-02-12 10:42:0084.8[facility]ann[facility] AND [id number] 10:42:00 Negative (02/12/18 5:42 AM)[facility] [id number] 10:42:00 Negative *NA*(02/12/18 5:42 AM)[facility] [id number] 10:42:00 Negative (02/12/18 5:42 AM)[facility] [id number] 10:42:00 Negative *NA*(02/12/18 5:42 AM)[facility] [id number] 10:42:00 Negative (02/12/18 5:42 AM)[facility] [id number] 10:42:00 Large *ABN*(02/12/18 5:42 AM)[facility] [id number] 10:42:00 0.2[facility] [id number] 10:42:00Trace *ABN*(02/12/18 5:42 AM)[facility] [id number] 10:42:00 Test Item Value Reference Range Interpretation Comments UA Spec Grav (test code = UA Spec 1.020 1 Grav) [facility] [id number] 10:42:00Slight Cloudy (02/12/18 5:42 AM)[facility] [id number] 10:42:00Yellow *NA*(02/12/18 5:42 AM)[facility] [id number] 10:42:00 Test Item Value Reference Range Interpretation Comments UA pH (test code = UA pH) 6.0 1 5.0-8.0 [facility] [id number] 10:42:00Negative (02/12/18 5:42 AM)[facility]CARDIAC UVAJKTC2721-73-89 10:42:0029[facility]annCHEM [id number] 10:42:004.9[facility]annCHEM [id number] 10:42:002.3[facility] JQUWYDWCIYAG1442-93-30 10:42:0014.8[facility]orial IiixjljUOYWZTOYPIWG8019-79-78 10:42:0024[facility]annCARDIAC [id number] 10:42:00 Test Item Value Reference Range Interpretation Comments Total CK (test code = Total CK) 29 12-191 [facility] HermannCHEM [id number] 10:42:00 Test Item Value Reference Range Interpretation Comments Phosphorus (test code = Phosphorus) 4.9 2.5-4.5 [facility]CHE[facility] [id number] 10:42:00 Test Item Value Reference Range Interpretation Comments Magnesium Lvl (test code = Magnesium 2.3 1.8-2.4 Lvl) [facility] BkxmxwaFGWGQRVMUTKF8544-03-90 10:42:00 Test Item Value Reference Range Interpretation Comments AGAP (test code = AGAP) 14.8 10.0-20.0 [facility] UbywpomJXGMOUNJZJEL1489-06-94 10:42:00 Test Item Value Reference Range Interpretation Comments CO2 (test code = CO2) 24 24-32 [facility]lineHnrsuamYFKEAFDBNSLP1525-48-92 10:42:00 Test Item Value Reference Range Interpretation Comments Potassium Lvl (test code = Potassium 3.8 3.5-5.1 Lvl) [facility]lineUwvpibnCYFXUOSMWCTR5195-15-29 10:42:00 Test Item Value Reference Range Interpretation Comments Chloride Lvl (test code = Chloride Lvl) 105 95-109 [facility] ShorelineJqczijuHPVHETAGCWSH3133-06-04 10:42:00 Test Item Value Reference Range Interpretation Comments Calcium Lvl (test code = Calcium Lvl) 9.8 8.5-10.5 [facility]safsaeUHOVVYIOVCZQ9266-65-06 10:42:00 Test Item Value Reference Range Interpretation Comments Sodium Lvl (test code = Sodium Lvl) 140 135-145 [facility] CenterHqkvjeoJMTRMNEORWKS6965-46-46 10:42:00 Test Item Value Reference Range Interpretation Comments Creatinine Lvl (test code = Creatinine 0.68 0.50-1.40 Lvl) [facility] CenterLlqxrbdFDJZWITXXJYE1922-31-47 10:42:00 Test Item Value Reference Range Interpretation Comments BUN (test code = BUN) 15 7-22 [facility] CenterXwyfvnaUYLTEXIZFJYU3649-56-32 10:42:00 Test Item Value Reference Range Interpretation Comments Glucose Lvl (test code = Glucose Lvl) 89 70-99 [facility] CenterYneddssMGHGRYONEWKI0434-01-91 10:42:00 Test Item Value Reference Range Interpretation Comments eGFR (test code = eGFR) See Comment [facility]KqnqdvzWCMIAGOSKT6755-27-00 10:42:00 Test Item Value Reference Range Interpretation Comments Lymphocytes # (test code = Lymphocytes 3.7 1.0-5.5 #) [facility] LancasterSzpvuqcSPEWSSSGGZ5944-56-21 10:42:00 Test Item Value Reference Range Interpretation Comments Eosinophils (test code = 1.4 See_Comment [A utomated message] The Eosinophils) system which ge nerated this result tra nsmitted reference range : <=4.0. The reference r rosangela was not used to int erpret this result as normal/abnormal . [facility] LancasterBzlabgfZXZKVFRDCE5599-07-09 10:42:00 Test Item Value Reference Range Interpretation Comments Neutrophils # (test code = Neutrophils 7.7 1.5-8.1 #) [facility] LancasterNyewuejRTJUYRXHQJ3217-73-45 10:42:00 Test Item Value Reference Range Interpretation Comments Monocytes (test code = Monocytes) 11.0 2.0-12.0 [facility] LancasterJtmgcnrZPQMMFWUQS3421-81-35 10:42:00 Test Item Value Reference Range Interpretation Comments Basophils (test code = 0.3 See_Comment [Aut omated message] The Basophils) system which ge nerated this result tra nsmitted reference range : <=1.0. The reference r rosangela was not used to int erpret this result as normal/abnormal . [facility] LancasterWnevioaOYXOJKHXJF1941-06-67 10:42:00 Test Item Value Reference Range Interpretation Comments Lymphocytes (test code = Lymphocytes) 28.6 20.0-40.0 [facility]YjveuttKACVUIFUEI3477-58-08 10:42:00 Test Item Value Reference Range Interpretation Comments Segs (test code = Segs) 58.7 45.0-75.0 [facility] HospitalUpoybhyZSAHZUPTVC6655-25-21 10:42:00 Test Item Value Reference Range Interpretation Comments Monocytes # (test code 1.4 See_Comment [Aut omated message] The = Monocytes #) system which generated this result tra nsmitted reference range : <=0.8. The reference r rosangela was not used to int erpret this result as normal/abnormal . [facility] LancasterDbbacfwVGJLLNIORO2370-21-39 10:42:00 Test Item Value Reference Range Interpretation Comments Eosinophils # (test code 0.2 See_Comment [A utomated message] The = Eosinophils #) system whic h generated this result tra nsmitted reference range : <=0.5. The reference r rosangela was not used to int erpret this result as normal/abnormal . [facility] ShorelineWquumleWVNVASXKKSOM4370-99-87 10:42:003.8MemoriChildress [facility] 2018-02-12 10:42:00 Test Item Value Reference Range Interpretation Comments MPV (test code = MPV) 7.4 7.4-10.4 [facility]AeakprnEAWESGHOLE5233-18-07 10:42:00 Test Item Value Reference Range Interpretation Comments WBC (test code = WBC) 13.1 3.7-10.4 [facility] LancasterQngwaydGEBQDIMOVB0117-44-63 10:42:00 Test Item Value Reference Range Interpretation Comments Hgb (test code = Hgb) 13.3 12.0-16.0 [facility] LancasterCblipelVVFKSOHUWM1180-65-82 10:42:00 Test Item Value Reference Range Interpretation Comments RBC (test code = RBC) 4.63 4.20-5.40 [facility]3426[facility]75-12 10:42:00 Test Item Value Reference Range Interpretation Comments Platelet (test code = Platelet) 310 133-450 [facility]QvkjcznYXGUYVMVHD7024-66-88 10:42:00 Test Item Value Reference Range Interpretation Comments MCHC (test code = MCHC) 33.8 32.0-36.0 [facility] LancasterAkvftlpYLFNVTGWKC3970-39-39 10:42:00 Test Item Value Reference Range Interpretation Comments RDW (test code = RDW) 13.7 11.5-14.5 [facility] LancasterSmepkcjVJYGNAHWUG1247-79-44 10:42:00 Test Item Value Reference Range Interpretation Comments MCH (test code = MCH) 28.7 pg 27.0-31.0 [facility] LancasterNnkrlzsJXBOIPDMBZ3825-39-53 10:42:00 Test Item Value Reference Range Interpretation Comments Hct (test code = Hct) 39.3 36.0-48.0 [facility] LancasterQsximcvRIFACQRWZJ7867-54-71 10:42:00 Test Item Value Reference Range Interpretation Comments MCV (test code = MCV) 84.8 80.0-98.0 [facility]2018-10-02 10:42:00 Test Item Value Reference Range Interpretation Comments UA RBC (test code = >100 /HPF See_Comment [Automa ruiz message] The UA RBC) system which ge nerated this result tra nsmitted reference range : <=2. The reference range was not used to interpr et this result as normal/abnormal . [facility] AND [id number] 10:42:00 Test Item Value Reference Range Interpretation Comments UA Bacteria (test code = UA Few /HPF Bacteria) [facility] AND [id number] 10:42:00 Test Item Value Reference Range Interpretation Comments UA Protein (test code Negative (02/12/18 5:42 = UA Protein) AM) [facility] AND [id number] 10:42:00 Test Item Value Reference Range Interpretation Comments UA Bili (test code = Negative *NA*(02/12/18 UA Bili) 5:42 AM) [facility]2018-10-02 10:42:00 Test Item Value Reference Range Interpretation Comments UA Glucose (test code Negative (02/12/18 5:42 = UA Glucose) AM) [facility]2018-10-02 10:42:00 Test Item Value Reference Range Interpretation Comments UA Ketones (test code Negative *NA*(02/12/18 = UA Ketones) 5:42 AM) [facility]2018-10-02 10:42:00 Test Item Value Reference Range Interpretation Comments UA Nitrite (test code Negative (02/12/18 5:42 = UA Nitrite) AM) [facility] [id number] 10:42:00 Test Item Value Reference Range Interpretation Comments UA Blood (test code = Large *ABN*(02/12/18 UA Blood) 5:42 AM) [facility] [id number] 10:42:00 Test Item Value Reference Range Interpretation Comments UA Urobilinogen (test code = UA 0.2 0.1-1.0 Urobilinogen) [facility] [id number] 10:42:00 Test Item Value Reference Range Interpretation Comments UA Sq Epi (test code = UA Sq Epi) Few /LPF [facility] [id number] 10:42:00 Test Item Value Reference Range Interpretation Comments UA WBC (test code = UA WBC) 3-5 /HPF [facility] [id number] 10:42:00 Test Item Value Reference Range Interpretation Comments UA Leuk Est (test code Trace *ABN*(02/12/18 = UA Leuk Est) 5:42 AM) [facility] [id number] 10:42:00 Test Item Value Reference Range Interpretation Comments UA Spec Grav (test code = UA Spec 1.020 1 Grav) [facility] [id number] 10:42:00 Test Item Value Reference Range Interpretation Comments UA Turbidity (test code Slight Cloudy = UA Turbidity) (02/12/18 5:42 AM) [facility] [id number] 10:42:00 Test Item Value Reference Range Interpretation Comments UA Color (test code = Yellow *NA*(02/12/18 UA Color) 5:42 AM) [facility] [id number] 10:42:00 Test Item Value Reference Range Interpretation Comments UA pH (test code = UA pH) 6.0 1 5.0-8.0 [facility] [id number] 10:42:00 Test Item Value Reference Range Interpretation Comments U Preg (test code = U Negative (02/12/18 5:42 Preg) AM) [facility]lineBbzflsjRZWUGKTSOCEG7415-96-44 10:42:97181[facility]f [facility]annELECTROLYTES 2018-02-12 10:42:009.8[facility] DdbfzkdJNTPRSOPWKBP9428-58-63 10:42:80888Nwivjzku PkydwwjHFJKTSCGVPJN6807-09-38 10:42:000.68[facility] BiwwftkMDIZBUXWDZGP1557-97-71 10:42:0015[facility] WwqfxupOOOVATOWLEGG5171-83-71 10:42:0089[facility] UDMAKUBBAA0455-16-05 10:42:003.7[facility] SwynuqeXKMJOHVQGM5024-81-59 10:42:001.4 [facility] BckuyjmPFBGNZCQNL2318-73-44 10:42:007.7[facility]annHEMATOLOGY 2018-02-12 10:42:0011.0[facility] RvkbzsrVFXUVIAJUF6103-54-43 10:42:000.3[facility] YpcbesvJPDNQQQDFD5177-04-39 10:42:0028.6[facility] NraydayGNKVIMZKCL3092-36-36 10:42:0058.7[facility] QyqknqmBPIIMFEWUD5796-58-41 10:42:001.4[facility] Evelio WTQJGTXKNO6082-73-20 10:42:000.2[facility] QoqekjdDWOOTOQDMA4861-82-78 10:42:007.4 [facility] AzswpyjKUYAHOVRIN6000-40-99 23:34:005[facility] HermannIMMUNOLOGY 2018 23:34:00<10[facility] TfiziucJSIMIRBWGB8222-68-59 23:34:00<2.9 Memorial UuuriouHWRJMBXFJI0634-51-85 23:34:18424Urhachja HermannIMMUNOLOGY 2018 23:34:00Negative (01/28/18 6:34 PM)[facility]annIMMUNOLOGY 2018 23:34:00Negative (01/28/18 6:34 PM)[facility]ann[facility]MAT[facility] 2018 23:34:00 Test Item Value Reference Range Interpretation Comments Sed Rate (test code = 5 See_Comment [Auto mated message] The Sed Rate) system which ge nerated this result transmit ruiz reference range : <=20. The reference range was not used to interpr et this result as leonor l/abnormal. [facility] RyozaaqHEHCPUWSIK9567-62-69 23:34:00 Test Item Value Reference Range Interpretation Comments RF Qnt (test code = no gt See_Comment [Automa ruiz message] The RF Qnt) system which ge nerated this result transmit ruiz reference range : <=20. The reference range was not used to interpr et this result as leonor l/abnormal. [facility]ot[facility]JRGOXPJI5063-76-93 23:34:00 Test Item Value Reference Range Interpretation Comments C-REACTIVE PROTEIN (test code = no gt C-REACTIVE PROTEIN) [facility] ArlingtonFwbgrurVAIOVSTHPB1433-67-12 23:34:00 Test Item Value Reference Range Interpretation Comments C3 Complement (test code = C3 132 88-201 Complement) [facility] ArlingtonDvedwpaRNENEPKICU1232-63-62 23:34:00 Test Item Value Reference Range Interpretation Comments HLA B-27 (test code = Negative (01/28/18 6:34 HLA B-27) PM) [place] [id number] 23:34:00 Test Item Value Reference Range Interpretation Comments MARCY (test code = MARCY) Negative (01/28/18 6:34 PM) [facility]
[2022-01-17] MEDS ORDERED: IBUPROFEN 400 MG TAB ONE (13:33)
--- NOTE | 2022-01-17 13:57 | RAD REPORT ---
EXAM DESCRIPTION: RAD - Shoulder Left 2 View - 01/17/2022 1:30 pm CLINICAL HISTORY: pain COMPARISON: No comparisons FINDINGS/IMPRESSION: No acute fracture. No malalignment. No significant focal degenerative changes.
--- NOTE | 2022-01-17 13:58 | RAD REPORT ---
EXAM DESCRIPTION: RAD - Humerus Left - 01/17/2022 1:30 pm CLINICAL HISTORY: pain COMPARISON: No comparisons FINDINGS/IMPRESSION: No acute fracture. No malalignment. No significant focal degenerative changes.
--- NOTE | 2022-01-17 14:04 | ER ---
Nurse's Notes [facility] Name: Jasmine Stacy Age: 21 yrs Sex: Female : 2000 Arrival Date: 01/17/2022 Time: 12:37 Bed 26 Private MD: Diagnosis: Pain in left upper arm;Fall on same level from slipping, tripping and stumbling without subsequent striking against object Presentation: 01/17 13:02 Chief complaint: Patient states: Slipped and fell on left shoulder/arm yesterday. C/O ld1 pain to left shoulder and upper arm. Denies LOC. Coronavirus screen: At this time, the client does not indicate any symptoms associated with coronavirus-19. Ebola Screen: No symptoms or risks identified at this time. Initial Sepsis Screen: Does the patient meet any 2 criteria? No. Patient's initial sepsis screen is negative. Does the patient have a suspected source of infection? No. Patient's initial sepsis screen is negative. Risk Assessment: Do you want to hurt yourself or someone else? Patient reports no desire to harm self or others. Onset of symptoms was January 17, 2022. 13:02 Method Of Arrival: Ambulatory ld1 13:02 Acuity: JONO 4 ld1 Triage Assessment: 13:09 General: Appears in no apparent distress. comfortable, Behavior is calm, cooperative, ld1 appropriate for age. Pain: Complains of pain in left arm Pain does not radiate. Pain currently is 8 out of 10 on a pain scale. Quality of pain is described as throbbing, Pain began suddenly. EENT: No signs and/or symptoms were reported regarding the EENT system. Neuro: Level of Consciousness is awake, alert, obeys commands, Oriented to person, place, time, situation, Appropriate for age. Cardiovascular: Capillary refill < 3 seconds Patient's skin is warm and dry. Respiratory: Airway is patent Respiratory effort is even, unlabored. GI: Abdomen is round non-distended. : No signs and/or symptoms were reported regarding the genitourinary system. Derm: No signs and/or symptoms reported regarding the dermatologic system. Musculoskeletal: No signs and/or symptoms reported regarding the musculoskeletal system. 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 - Social history:: Smoking status: Patient denies any tobacco usage or history of. Screenin:01 Abuse screen: Denies threats or abuse. Denies injuries from another. Nutritional eh3 screening: No deficits noted. Tuberculosis screening: No symptoms or risk factors identified. Fall Risk Fall in past 12 months (25 points). Total Brown Fall Scale indicates Low Risk Score (25-44 pts). Fall prevention measures have been instituted. Side Rails Up X 2 Placed close to Nursing Station Frequent Obs/Assesments occuring As available Patient and Family Educated on Fall Prevention Program and strategies. Assessment: 13:17 General: Appears in no apparent distress. uncomfortable, Behavior is calm, cooperative, eh3 appropriate for age. Pain: Complains of pain in anterior aspect of left shoulder, left bicep, posterior aspect of left shoulder and left tricep Pain does not radiate. Pain currently is 8 out of 10 on a pain scale. Quality of pain is described as aching, sharp, Pain began 1 day ago. Is continuous. Neuro: Level of Consciousness is awake, alert, obeys commands, Oriented to person, place, time, situation. Cardiovascular: Capillary refill < 3 seconds Patient's skin is warm and dry. Respiratory: Airway is patent Respiratory effort is even, unlabored. GI: Abdomen is round non-distended. : No signs and/or symptoms were reported regarding the genitourinary system. EENT: No signs and/or symptoms were reported regarding the EENT system. Derm: No signs and/or symptoms reported regarding the dermatologic system. Musculoskeletal: Circulation, motion, and sensation intact. Range of motion: limited in right shoulder. Vital Signs: 13:01 BP 130 / 83; Pulse 82; Resp 18; Pulse Ox 98% on R/A; Pain 8/10; eh3 13:02 BP 130 / 83; Pulse 77; Resp 17; Temp 97.6(TE); Pulse Ox 99% on R/A; Weight 90.72 kg; ld1 Height 5 ft. 3 in. (160.02 cm); Pain 8/10; 14:00 BP 109 / 54; Pulse 72; Resp 18; Pulse Ox 97% on R/A; eh3 13:02 Body Mass Index 35.43 (90.72 kg, 160.02 cm) ld1 ED Course: 12:37 Patient arrived in ED. mr 12:58 Dalia Smith FNP-C is [facility]. kb 12:58 Raffy Colindres MD is Attending Physician. kb 13:01 Patient has correct armband on for positive identification. Bed in low position. Call eh3 light in reach. Side rails up X2. Client placed on continuous cardiac and pulse oximetry monitoring. NIBP monitoring applied. Door closed. Noise minimized. Lights dimmed. Warm blanket given. 13:06 Triage completed. ld1 13:09 Arm band placed on right wrist. ld1 13:17 Victorina Cantu, RN is Primary Nurse. eh3 14:26 No provider procedures requiring assistance completed. Patient did not have IV access eh3 during this emergency room visit. Administered Medications: 13:31 Drug: Ibuprofen 800 mg Route: PO; eh3 14:29 Follow up: Response: Pain is decreased eh3 Medication: 14:50 VIS not applicable for this client. eh3 Outcome: 14:04 Discharge ordered by . kb 14:49 Discharged to home ambulatory, with family. eh3 14:49 Condition: stable 14:49 Discharge instructions given to patient, Instructed on discharge instructions, follow up and referral plans. Demonstrated understanding of instructions, follow-up care. 14:50 Patient left the ED. eh3 Signatures: Dalia Smith FNP-C FNP-Jaime Kimberly RaeMonica patrick RN RN ld1 Victorina Cantu, SO RN eh3 Corrections: (The following items were deleted from the chart) 13:06 13:02 Acuity: JONO 3 ld1 ld1
--- NOTE | 2022-01-17 14:05 | EDPHYS ---
Physician Documentation [facility] Name: Jasmine Stacy Age: 21 yrs Sex: Female : 2000 Arrival Date: 01/17/2022 Time: 12:37 Bed 26 Private MD: ED Physician Raffy Colindres HPI: 01/17 19:27 This 21 yrs old Female presents to ER via Ambulatory with complaints of Fall Injury, kb Arm Injury. 19:27 Details of fall: The patient fell from an upright position, while walking. Onset: The kb symptoms/episode began/occurred yesterday. Associated injuries: The patient sustained posterior aspect of left shoulder and left upper arm, painful injury. Severity of symptoms: At their worst the symptoms were moderate, in the emergency department the symptoms are unchanged. The patient has not experienced similar symptoms in the past. The patient has not recently seen a physician. Patient reports she slipped and fell onto left shoulder yesterday. Complains of pain to left shoulder and upper arm.. 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 - Social history:: Smoking status: Patient denies any tobacco usage or history of. ROS: 19:18 Constitutional: Negative for fever, chills, and weight loss. kb 19:18 MS/extremity: Positive for pain, of the posterior aspect of left shoulder and left upper arm. 19:18 All other systems are negative. Exam: 19:18 Constitutional: This is a well developed, well nourished patient who is awake, alert, kb and in no acute distress. Head/Face: Normocephalic, atraumatic. ENT: Moist Mucous membranes Cardiovascular: Regular rate and rhythm with a normal S1 and S2. No gallops, murmurs, or rubs. No pulse deficits. Respiratory: Respirations even and unlabored. No increased work of breathing. Talking in full sentences Skin: Warm, dry with normal turgor. Normal color. Neuro: Awake and alert, GCS 15, oriented to person, place, time, and situation. Moves all extremities. Normal gait. Psych: Awake, alert, with orientation to person, place and time. Behavior, mood, and affect are within normal limits. 19:18 Musculoskeletal/extremity: Extremities: grossly normal except: noted in the posterior aspect of left shoulder and left upper arm: pain, tenderness, ROM: intact in all extremities, Circulation is intact in all extremities. Sensation intact. Vital Signs: 13:01 BP 130 / 83; Pulse 82; Resp 18; Pulse Ox 98% on R/A; Pain 8/10; eh3 13:02 BP 130 / 83; Pulse 77; Resp 17; Temp 97.6(TE); Pulse Ox 99% on R/A; Weight 90.72 kg; ld1 Height 5 ft. 3 in. (160.02 cm); Pain 8/10; 14:00 BP 109 / 54; Pulse 72; Resp 18; Pulse Ox 97% on R/A; eh3 13:02 Body Mass Index 35.43 (90.72 kg, 160.02 cm) ld1 MDM: 13:02 Patient medically screened. kb 19:18 Data reviewed: vital signs, nurses notes. Data interpreted: Pulse oximetry: on room air kb is 97 %. Interpretation: normal. Counseling: I had a detailed discussion with the patient and/or guardian regarding: the historical points, exam findings, and any diagnostic results supporting the discharge/admit diagnosis, radiology results, the need for outpatient follow up, a family practitioner, to return to the emergency department if symptoms worsen or persist or if there are any questions or concerns that arise at home. 01/17 13:58 Order name: RAD; Complete Time: 13:59 EDMS 01/17 13:59 Order name: RAD; Complete Time: 14:03 EDMS Administered Medications: 13:31 Drug: Ibuprofen 800 mg Route: PO; 3 14:29 Follow up: Response: Pain is decreased eh3 Disposition Summary: 01/17/22 14:04 Discharge Ordered Location: Home kb Condition: Stable kb Diagnosis - Pain in left upper arm kb - Fall on same level from slipping, tripping and stumbling without subsequent kb striking against object Followup: kb - With: Emergency Department - When: As needed - Reason: Worsening of condition Followup: kb - With: Private Physician - When: 2 - 3 days - Reason: Recheck today's complaints, Continuance of care, Re-evaluation by your physician Discharge Instructions: - Discharge Summary Sheet kb - Musculoskeletal Pain kb Forms: - Medication Reconciliation Form kb - Thank You Letter kb - Antibiotic Education kb - Prescription Opioid Use kb Addendum: 01/18/2022 22:31 Co-signature as Attending Physician, Raffy Colindres MD. r n Signatures: Dalia Smith, LEAD PRESSER-C LEAD PRESSER-Ckb Raffy Colindres MD MD rn Monica Chou RN RN ld1 Victorina Cantu RN RN eh3
[2022-01-17 15:12] VITALS: TEMP 97.6
[2022-01-17 15:15] VITALS: BP 109/54; O2SAT 97
== END 2022-01-17 14:50 | disposition home or self-care (01) ==
LOC: ER 12:33
DX: M79.622 Pain in left upper arm (principal); W01.0XXA Fall on same level from slipping, tripping and stumbling without subsequent striking against object, initial encounter; M79.7 Fibromyalgia
CPT/HCPCS: 99283

== ENCOUNTER 2023-09-21 21:26 | Emergency (ER) | payer OTHER ==
--- NOTE | 2023-09-21 22:21 | RAD REPORT ---
EXAM DESCRIPTION: Nicole Single View09/21/2023 10:12 pm CLINICAL HISTORY: Chest pain COMPARISON: 2020 FINDINGS: The lungs appear clear of acute infiltrate. The heart is normal size IMPRESSION: No acute abnormalities displayed
--- NOTE | 2023-09-21 22:36 | RAD REPORT ---
EXAM DESCRIPTION: USExtrem Venous W Compress Bil09/21/2023 10:22 pm CLINICAL HISTORY: Leg pain COMPARISON: none FINDINGS: The common femoral, superficial femoral, greater saphenous, popliteal and posterior tibial veins bilaterally are compressible and demonstrate augmentation. Doppler demonstrates good flow. Grayscale, color and spectral analysis performed on all vessels IMPRESSION: No evidence of deep venous thrombosis involving either lower extremity.
[2023-09-21 23:02] LABS: Absolute Basophils 0.1 K/uL (0-0.5); Absolute Lymphocytes (CBC) 2.8 K/uL (0.7-4.9); Absolute Monocytes 0.9 K/uL (0.1-1.3); Basophils % 0.9 % (0-1.3); Eosinophils % 0.4 % (0-4.4); Hematocrit 39.5 % (36.0-45.0); Hemoglobin 12.7 g/dL (12.0-15.0); Lymphocytes % 21.9 % (15.3-44.8); MCHC 32.2 g/dL (32.0-36.0); MCV 83.8 fL (80-100); MPV 7.7 fL (7.6-11.3); Monocytes % 7.2 % (3.3-12.3); Neutrophils % 69.6 % (41.7-73.7); Platelets 369 thou/uL (152-406); RBC Red Blood Cell Count 4.72 M/uL (3.86-4.86); Red Cell Distribution Width 13.8 % (12.1-15.2)
[2023-09-21 23:20] LABS: Specific Gravity > 1.030 (1.005-1.030)
[2023-09-21 23:21] LABS: Specific Gravity > 1.030 (1.005-1.030); Urine Bacteria None Seen /HPF (<20); Urine Bilirubin NEGATIVE (Negative); Urine Blood Negative (Negative); Urine Clarity Extremely Turbid (Clear); Urine Color Light-Yellow (Yellow); Urine Culture Reflex Order REFLEXED; Urine Glucose NEGATIVE (Negative); Urine Ketones TRACE (Negative); Urine Microscopic Reflex YN ORDER UMIC; Urine Mucus 3+ /HPF (None Seen); Urine Nitrite NEGATIVE (Negative); Urine Protein TRACE (Negative); Urine RBC <5 /HPF (None Seen); Urine Urobilinogen Normal (Normal); Urine WBC 20-50 /HPF (<5); Urine pH 5.5 (5.0-7.0)
[2023-09-21 23:23] LABS: Albumin/Globulin Ratio 0.9 (1.1-1.8); Anion Gap 9.7 mEq/L (5.0-15.0); Bilirubin Total 0.3 mg/dL (0.2-1.0); Globulin 4.7 g/dL (2.3-3.5); Protein, Total 8.7 g/dL (6.4-8.2); Troponin High Sensitivity 3.6 pg/mL (<58.9)
[2023-09-21 23:24] LABS: Potassium 3.7 mEq/L (3.5-5.1)
--- NOTE | 2023-09-22 00:51 | EDPHYS ---
Physician Documentation [facility] Name: Jasmine Stacy Age: 23 yrs Sex: Female : 2000 Arrival Date: 09/21/2023 Time: 21:26 Bed 14 Private MD: ED Physician Kel Méndez HPI: 09/21 00:57 This 23 yrs old Female presents to ER via Wheelchair with complaints of Leg Pain. kb 00:57 Pt is a 23 year old female who presents with bilateral lower extremity pain and chest kb pain that started one week ago. Reports right abd pain that started today. Denies fever, n/v/d, cough, congestion. Historical: - Allergies: 09/20 22:06 No Known Allergies; pf1 - PMHx: 22:06 Fibromyalgia; pleurisy; pf1 - PSHx: 22:06 None; pf1 - Immunization history:: Adult Immunizations not up to date, Client reports having NOT received the Covid vaccine. Last tetanus immunization: < 10 years ago Flu vaccine is not up to date. - Infectious Disease History:: Denies. - Social history:: Smoking status: Patient denies any tobacco usage or history of. Patient/guardian denies using alcohol, street drugs. ROS: 09/21 00:55 Constitutional: As per HPI kb Exam: 09/20 22:56 ECG was reviewed by the Attending Physician. kb 09/21 00:55 Constitutional: This is a well developed, well nourished patient who is awake, alert, kb and in no acute distress. Head/Face: Normocephalic, atraumatic. ENT: Moist Mucous membranes Cardiovascular: Regular rate Respiratory: Respirations even and unlabored. No increased work of breathing. Talking in full sentences Back: No spinal tenderness. No costovertebral tenderness. Full range of motion. Skin: Warm, dry with normal turgor. Normal color. Neuro: Awake and alert, GCS 15, oriented to person, place, time, and situation. Moves all extremities. Normal gait. Abdomen/GI: Inspection: abdomen appears normal, Bowel sounds: normal, Palpation: soft, in all quadrants, moderate abdominal tenderness, in the anterior aspect of right lateral abdomen, Musculoskeletal/extremity: Extremities: grossly normal except: noted in the right leg and left leg: pain, tenderness, ROM: intact in all extremities, Circulation is intact in all extremities. Sensation intact. Vital Signs: 09/20 21:46 BP 119 / 66; Pulse 85; Resp 16; Temp 99; Pulse Ox 100% on R/A; Weight 95.25 kg; Height pf1 5 ft. 4 in. ; Pain 01/21; 23:00 BP 124 / 75; Pulse 73; Resp 16; Pulse Ox 99% on R/A; me1 09/21 00:00 BP 122 / 68; Pulse 79; Resp 16; Pulse Ox 99% on R/A; pf1 00:59 BP 121 / 70; Pulse 77; Resp 16; Temp 98.3; Pulse Ox 100% on R/A; Pain /10; pf1 09/20 21:46 Body Mass Index 36.05 (95.25 kg, 162.56 cm) pf1 09/20 21:46 Pain Scale: Adult pf1 00:59 Pain Scale: Adult pf1 MDM: 09/20 21:28 Patient medically screened. kb 09/21 00:56 Differential diagnosis: dvt, mi, arrhythmia, abnormal electrolytes. Data reviewed: kb vital signs, nurses notes. Historians other than the Patient: Parent: mother. Counseling: I had a detailed discussion with the patient and/or guardian regarding the historical points, exam findings, and any diagnostic results supporting the discharge/admit diagnosis, lab results, radiology results, the need for outpatient follow up, a family practitioner, a neurologist, to return to the emergency department if symptoms worsen or persist or if there are any questions or concerns that arise at home. 09/20 21:57 Order name: CBC with Diff; Complete Time: 23:46 kb 09/20 21:57 Order name: CMP; Complete Time: 23:46 kb 09/20 21:57 Order name: Lipase; Complete Time: 23:46 kb 09/20 21:57 Order name: Test, Urine; Complete Time: 23:46 kb 09/20 21:57 Order name: Urinalysis w/ reflexes; Complete Time: 23:46 kb 09/20 21:57 Order name: Troponin HS; Complete Time: 23:46 kb 09/20 21:57 Order name: D-Dimer; Complete Time: 23:46 kb 09/20 23:25 Order name: Urine Culture EDMS 09/20 21:57 Order name: XRAY Chest (1 view); Complete Time: 22:21 kb 09/20 21:57 Order name: US Extremity Venous W Compression [place]; Complete Time: 22:38 kb 09/20 23:46 Order name: CT Abd/Pelvis - IV Contrast Only kb 09/20 21:57 Order name: IV Saline Lock; Complete Time: 23:56 kb 09/20 21:57 Order name: Labs collected and sent; Complete Time: 23:57 kb EC/10 22:56 Rate is 79 beats/min. Rhythm is regular. QRS Drake is Normal. ID interval is normal at kb 154 msec. QRS interval is normal at 88 msec. QT interval is normal at 428 msec. Administered Medications: No medications were administered Disposition: 09/21 02:24 Co-signature as Attending Physician, Kel Méndez MD I reviewed the patient's care rt provided by the Advanced Practice Provider and agree with the diagnosis and treatment plan. Disposition Summary: 09/22/23 00:50 Discharge Ordered Notes: Location: Home kb Condition: Stable kb Diagnosis - Abdominal pain, Generalized kb - Pain in left lower leg kb - Pain in right lower leg kb - Chest pain, unspecified kb - Fibromyalgia kb Followup: kb - With: Emergency Department - When: As needed - Reason: Worsening of condition Followup: kb - With: Private Physician - When: 2 - 3 days - Reason: Recheck today's complaints, Continuance of care, Re-evaluation by your physician Discharge Instructions: - Discharge Summary Sheet kb - Abdominal Pain, Adult, [id number] kb - Nonspecific Chest Pain, Adult, [id number] kb Forms: - Medication Reconciliation Form kb - Antibiotic Education kb - Prescription Opioid Use kb - Patient Portal Instructions kb - Leadership Thank You Letter kb Signatures: Dispatcher [employer] EDDC Dalia Smith, ASPHALT SURFACE HEATER OPERATOR-C ASPHALT SURFACE HEATER OPERATOR-Ckb Kel Méndez MD MD rt Antionette Merino RN RN pf1 Corrections: (The following items were deleted from the chart) 09/20 21:58 21:58 CBC+H.LAB.BRZ ordered. EDMS EDMS 21:58 21:58 COMPREHENSIVE METABOLIC PANEL+C.LAB.BRZ ordered. EDMS EDMS 21:58 21:58 LIPASE+C.LAB.BRZ ordered. EDMS EDMS 21:58 21:58 Test, Urine+UC.LAB.BRZ ordered. EDMS EDMS 21:58 21:58 Urinalysis+U.LAB.BRZ ordered. EDMS EDMS : 21:58 Troponin High Sensitivity+C.LAB.BRZ ordered. EDMS EDMS 21:58 D-DIMER+COAG.LAB.BRZ ordered. EDMS EDMS : 21:58 Chest Single View+RAD.RAD.BRZ ordered. EDMS EDMS : 21:59 Extrem Venous W Compression [place]+US.RAD.BRZ ordered. EDMS EDMS
--- NOTE | 2023-09-22 00:51 | ER ---
Nurse's Notes [facility] Name: Jasmine Stacy Age: 23 yrs Sex: Female : 2000 Arrival Date: 09/21/2023 Time: 21:26 Bed 14 Private MD: Diagnosis: Abdominal pain, Generalized;Pain in left lower leg;Pain in right lower leg;Chest pain, unspecified;Fibromyalgia Presentation: 09/20 21:46 Chief complaint: Patient states: bilateral leg pain of 10,onset 1 week with RUQ and RLQ pf1 pain with bilateral chest wall pain,onset today. Patient denies any N/V/D. Patient denies any fall or injury. Patient stated went to the doctor of a follow up and was prescribed Meloxicam, Mupirocin ointment and triamcinolone acetonide ointment. Coronavirus screen: Client denies travel out of the [place] in the last 14 days. At this time, the client does not indicate any symptoms associated with coronavirus-19. Ebola Screen: Patient negative for fever greater than or equal to 101.5 degrees Fahrenheit, and additional compatible Ebola Virus Disease symptoms. Initial Sepsis Screen: Does the patient meet any 2 criteria? No. Patient's initial sepsis screen is negative. Does the patient have a suspected source of infection? No. Patient's initial sepsis screen is negative. Risk Assessment: Do you want to hurt yourself or someone else? Patient reports no desire to harm self or others. Onset of symptoms was September 14, 2023. 21:46 Method Of Arrival: Wheelchair pf1 21:46 Acuity: JONO 3 pf1 Triage Assessment: 22:07 General: Appears in no apparent distress. uncomfortable, well groomed, well developed, pf1 Behavior is calm, cooperative, appropriate for age, quiet. Pain: Complains of pain in chest, abdomen, right leg and left leg. Cardiovascular: Chest pain. Musculoskeletal: Reports pain in right leg and left leg Pain is 10 out of 10 on a pain scale. Historical: - Allergies: 22:06 No Known Allergies; pf1 - PMHx: 22:06 Fibromyalgia; pleurisy; pf1 - PSHx: 22:06 None; pf1 - Immunization history:: Adult Immunizations not up to date, Client reports having NOT received the Covid vaccine. Last tetanus immunization: < 10 years ago Flu vaccine is not up to date. - Infectious Disease History:: Denies. - Social history:: Smoking status: Patient denies any tobacco usage or history of. Patient/guardian denies using alcohol, street drugs. Screenin:33 [facility] ED Fall Risk Assessment (Adult) History of falling in the last 3 months, me1 including since admission No falls in past 3 months (0 pts) Confusion or Disorientation No (0 pts) Intoxicated or Sedated No (0 pts) Impaired Gait No (0 pts) Mobility Assist Device Used No (0 pt) Altered Elimination No (0 pt) Score/Fall Risk Level 0 - 2 = Low Risk Maintained a safe environment, Provided non-skid footwear, Hourly rounding (assess needs \T\ fall precautionary measures) done. Abuse screen: Denies threats or abuse. Nutritional screening: No deficits noted. Tuberculosis screening: No symptoms or risk factors identified. Assessment: 22:33 General: Appears uncomfortable, unkempt, well developed, well nourished, Behavior is me1 calm, cooperative, appropriate for age, Reports bilateral leg pain of 10,onset 1 week with right flank pain with bilateral chest wall pain,onset today. Patient denies any N/V/D. Patient denies any fall or injury. Patient stated went to the doctor of a follow up for pain and for dry, cracked skin on fingers and was prescribed Meloxicam, Mupirocin ointment and triamcinolone acetonide ointment. Pain: Complains of pain in left leg and right leg and abdomen and chest Pain does not radiate. Pain currently is 10 out of 10 on a pain scale. Quality of pain is described as sharp, Pain began 1 week ago Is continuous. Neuro: Level of Consciousness is awake, alert, obeys commands, Oriented to person, place, time, situation, Appropriate for age. Cardiovascular: Capillary refill < 3 seconds Patient's skin is warm and dry. Respiratory: Airway is patent Trachea midline Respiratory effort is even, unlabored, Respiratory pattern is regular, symmetrical. GI: No signs and/or symptoms were reported involving the gastrointestinal system. : No signs and/or symptoms were reported regarding the genitourinary system. EENT: No signs and/or symptoms were reported regarding the EENT system. Derm: Skin is healthy with good turgor, Skin is pink, warm \T\ dry. Wound noted fingers Wound is dry, cracked skin. Musculoskeletal: Reports pain in left leg and right leg and chest. 09/21 00:00 Reassessment: Patient appears in no apparent distress at this time. Patient and/or pf1 family updated on plan of care and expected duration. Pain level reassessed. Patient is alert, oriented x 3, equal unlabored respirations, skin warm/dry/pink. 00:59 Reassessment: Patient appears in no apparent distress at this time. Patient and/or pf1 family updated on plan of care and expected duration. Pain level reassessed. Patient is alert, oriented x 3, equal unlabored respirations, skin warm/dry/pink. Patient states feeling better. Patient states symptoms have improved. Vital Signs: 09/20 21:46 BP 119 / 66; Pulse 85; Resp 16; Temp 99; Pulse Ox 100% on R/A; Weight 95.25 kg; Height pf1 5 ft. 4 in. ; Pain 9/10; 23:00 BP 124 / 75; Pulse 73; Resp 16; Pulse Ox 99% on R/A; me1 09/21 00:00 BP 122 / 68; Pulse 79; Resp 16; Pulse Ox 99% on R/A; pf1 00:59 BP 121 / 70; Pulse 77; Resp 16; Temp 98.3; Pulse Ox 100% on R/A; Pain 5/10; pf1 09/20 21:46 Body Mass Index 36.05 (95.25 kg, 162.56 cm) pf1 09/20 21:46 Pain Scale: Adult pf1 00:59 Pain Scale: Adult pf1 ED Course: 09/20 21:28 Patient arrived in ED. im 21:28 Dalia Smith FNP-C is PHCP. kb 21:28 Kel Méndez MD is Attending Physician. kb 22:06 Triage completed. pf1 22:14 XRAY Chest (1 view) In Process Unspecified. EDMS 22:16 Umm Pandey, SO is Primary Nurse. me1 22:24 US Extremity Venous W Compression [place] In Process Unspecified. EDMS 22:33 Patient has correct armband on for positive identification. Bed in low position. Call me1 light in reach. Side rails up X 1. Provided Education on: POC. Verbalized understanding. . Client placed on continuous cardiac and pulse oximetry monitoring. NIBP monitoring applied. Pulse ox on. NIBP on. :33 Arm band placed on right wrist. pf1 22:33 No provider procedures requiring assistance completed. me1 23:01 Initial lab(s) drawn, by ED staff, sent to lab. Urine collected: clean catch specimen, me1 cloudy. Inserted saline lock: 22 gauge in right forearm, using aseptic technique. 09/21 00:11 CT Abd/Pelvis - IV Contrast Only In Process Unspecified. EDMS 01:00 IV discontinued, intact, bleeding controlled, No redness/swelling at site. Pressure pf1 dressing applied. Administered Medications: No medications were administered Medication: 09/20 22:33 VIS not applicable for this client. me1 Outcome: 09/21 00:50 Discharge ordered by . kb 01:00 Discharged to home via wheelchair, with family, pf1 01:00 Condition: improved 01:00 Discharge instructions given to patient, family, Instructed on discharge instructions, follow up and referral plans. Demonstrated understanding of instructions, follow-up care, 01:01 Patient left the ED. pf1 Signatures: Dispatcher [employer] EDDalia Correa, ISAIAH-C FUR GLAZER-Antionette Burton RN RN pf1 Gege Rossi Michelle, SO RN me1 Corrections: (The following items were deleted from the chart) 09/20 22:33 21:46 Chief complaint: Patient states: bilateral leg pain of 10,onset 1 week with RUQ me1 and RLQ pain with bilateral chest wall pain,onset today. Patient denies any N/V/D. Patient denies any fall or injury. Patient stated went to the doctor of a follow up and was prescribed Meloxicam, Mupirocin ointment and triamcinolone acetonide ointment. pf1 09/21 00:44 09/20 23:00 BP 122 / 68; Pulse 79bpm; Resp 16bpm; Pulse Ox 99% RA; me1 pf1
[2023-09-22 01:50] VITALS: BP 121/70; TEMP 98.3; O2SAT 100
--- NOTE | 2023-09-24 11:52 | RAD REPORT ---
EXAM DESCRIPTION: CT ABDOMEN PELVIS WITH IV CONTRAST CLINICAL HISTORY: Female, 23 years old, ABD PAIN COMPARISON: CT aorta 11/23/2020 TECHNIQUE: CT acquisition of the abdomen and pelvis following the administration of IV contrast. Cor onal and sagittal reformatted images provided. This exam was performed according to departmental dose -optimization program which includes automated exposure control, adjustment of the mA and/or kV accor ding to patient size, and/or use of iterative reconstruction technique. FINDINGS: SUPPORTIVE DEVICES: None. LOWER CHEST: Unremarkable. ABDOMEN AND PELVIS: Liver: Diffuse hypoenhancement relative to the spleen. Gallbladder and bile ducts: Normal. Pancreas: Normal. Spleen: Normal. Adrenal glands: Normal. Kidneys and ureters: Normal. Bladder: Nondistended without evident abnormality. Reproductive organs: Unremarkable. GI tract: Normal caliber without wall thickening. Normal appendix. Lymph nodes: No evident adenopathy. Peritoneum: No evidence of ascites, fluid collection, or free air. Abdominal wall: No significant hernia. Vessels: Unremarkable. MUSCULOSKELETAL: No acute osseous abnormality. IMPRESSION: No acute abdominopelvic finding. Electronically signed by: Bk Hair MD 09/22/2023 12:41 AM CDT Due to temporary technical issues with the PACS/Fluency reporting system, reports are being signed by the in house radiologist without review as a courtesy to ensure prompt reporting. The interpreting r adiologist is fully responsible for the content of the report.
--- NOTE | 2023-09-24 13:24 | EKG ---
Test Date: 2023-09-21 Test Time: 22:06:22 Security Officer: SONU MEASUREMENT RESULTS: Intervals: Rate: 79 WI: 154 QRSD: 88 QT: 374 QTc: 428 Greene: P: 58 WI: 154 QRS: 67 T: 53 INTERPRETIVE STATEMENTS: Normal sinus rhythm with sinus arrhythmia Normal ECG Compared to ECG 11/23/2020 01:48:20 No significant changes Electronically Signed On 09-24-23 13:18:19 CDT by Aris Talbot
== END 2023-09-22 01:01 | disposition home or self-care (01) ==
LOC: ER 21:26
DX: R10.84 Generalized abdominal pain (principal); R07.9 Chest pain, unspecified; M79.662 Pain in left lower leg; M79.661 Pain in right lower leg; M79.7 Fibromyalgia; Z28.310 Unvaccinated for COVID-19
CPT/HCPCS: 93005; 87088; 85025; 81001; 87086; 36415; 81025; 85379; 84484; 83690; 80053; 74177; 71045; 93970; 99284; Q9967